=== PATIENT | male | born 1990 | race Caucasian/White ===

== ENCOUNTER 2020-06-12 23:11 | Emergency (ER) | payer OTHER ==
[2020-06-12] MEDS ORDERED: IBUPROFEN800 MG PO ×2 (23:57→23:59)
[2020-06-13 00:02] LABS: BASOPHIL 0.3 % (0-2); EOSINOPHIL 0.1 % (0-5); HCT 44.2 % (42.0-52.0); HGB 15.7 g/dl (13.2-18.0); LYMPHOCYTE 14.9 % (15-48); MCH 30.4 pg (25.0-31.0); MCHC 35.5 g/dL (32.0-36.0); MCV 85.5 fL (78.0-100.0); MONOCYTE 5.7 % (0-12); NEUTROPHIL 78.6 % (41-80); NRBC 0; PLT 240 K/uL (150-400); RBC 5.17 M/uL (4.70-6.00); RDW 11.3 % (11.5-14.0); WBC 15.3 K/uL (4.0-10.5)
[2020-06-13 00:10] LABS: ALBUMIN 3.8 g/dL (3.4-5.0); BILIRUBIN - TOTAL 0.4 mg/dL (0.2-1.0); BUN/CREAT RATIO (CALC) 17.4 RATIO; CREATININE 0.86 mg/dL (0.67-1.17); GLOBULIN (CALCULATION) 3.5 g/dL; POTASSIUM 3.4 mmol/L (3.5-5.1); TOTAL PROTEIN 7.3 g/dL (6.4-8.2)
[2020-06-13 00:36] LABS: CORONAVIRUS 2019 SARS-COV-2 NEGATIVE (NEGATIVE); INFLUENZA A NAA NEGATIVE (NEGATIVE)
== END 2020-06-13 01:05 | disposition home or self-care (01) ==
LOC: FER 23:11
PROVIDERS: Emergency Medicine
DX: B34.9 Viral infection, unspecified (principal); F17.200 Nicotine dependence, unspecified, uncomplicated; Z20.822 Contact with and (suspected) exposure to COVID-19
CPT/HCPCS: 36415; 80053; 85025; 99284; U0002

== ENCOUNTER 2020-08-23 21:31 | Emergency (ER) | payer OTHER ==
[~2020-08-23 21:31] MED LIST: IBUPROFEN800 MG PO
[2020-08-23 22:26] LABS: BASOPHIL 0.8 % (0-2); EOSINOPHIL 1.2 % (0-5); HCT 41.2 % (42.0-52.0); LYMPHOCYTE 19.5 % (15-48); MCH 30.2 pg (25.0-31.0); MONOCYTE 5.7 % (0-12); MPV 11.2 fL (6.0-9.5); NEUTROPHIL 72.4 % (41-80); NRBC 0; PLT 279 K/uL (150-400); RBC 4.63 M/uL (4.70-6.00); RDW 13.5 % (11.5-14.0); WBC 13.5 K/uL (4.0-10.5)
[2020-08-23 22:37] LABS: BUN/CREAT RATIO (CALC) 15.2 RATIO; CREATININE 0.79 mg/dL (0.67-1.17); POTASSIUM 3.6 mmol/L (3.5-5.1)
[2020-08-23] MEDS ORDERED: NAPROSYN375 MG PO (23:01)
[2020-08-23] MEDS ORDERED: ZPAK PO (23:01)
== END 2020-08-23 23:35 | disposition home or self-care (01) ==
LOC: FER 21:31
PROVIDERS: Emergency Medicine
DX: R09.1 Pleurisy (principal); F17.200 Nicotine dependence, unspecified, uncomplicated
CPT/HCPCS: 36415; 71045; 80048; 85025; 85379; 93005; J1885